=== PATIENT | female | born 1990 | race Caucasian/White ===

== ENCOUNTER 2016-12-10 19:20 | Emergency (ER) | payer MEDICAID ==
[2016-12-10] MEDS ORDERED: ONDANSETRON 4 MG/2 ML VIAL ONE (19:29)
--- NOTE | 2016-12-10 19:43 | EDPHY ---
H & P HPI/ROS: HPI CHIEF COMPLAINT: Right lower quadrant abdominal pain HISTORY OF PRESENT ILLNESS: This patient very pleasant 26-year-old female significant past medical history of endometriosis, status post full hysterectomy , cholecystectomy, does not take any daily medications presents emergency room with ongoing nausea vomiting since 0330 this morning with associated right lower quadrant sharp stabbing abdominal pain. Patient tells me she has had persistent nausea vomiting no diarrhea no fever. And sharp stabbing right lower quadrant pain does not radiate to her flank. No chest pain shortness of breath. No urinary symptoms no vaginal discharge. Not due to full hysterectomy. States the pain is constant right lower quadrant sharp stabbing. 6/10 per currently. With associated nausea vomiting. Nonbilious non hematemesis Patient denies low pelvic pain, vaginal discharge or vaginal bleeding. Past Medical History: Endometriosis Past Surgical History: Total full hysterectomy, cholecystectomy Social History: Denies daily use of drugs alcohol tobacco products Family History: Noncontributory ROS REVIEW OF SYSTEMS: A comprehensive 10 point review of systems is otherwise negative aside from elements mentioned in the history of present illness. Exam Constitutional appears well nontoxic triage nursing summary reviewed, vital signs reviewed, awake/alert. Eyes normal conjunctivae and sclera, EOMI, PERRLA. HENT normal inspection, atraumatic, moist mucus membranes, no epistaxis, neck supple/ no meningismus, no raccoon eyes. Respiratory clear to auscultation bilaterally, normal breath sounds, no respiratory distress, no wheezing. Cardiovascular rate normal, regular rhythm, no murmur, no edema, distal pulses normal. Gastrointestinal soft, tender palpation right lower quadrant, no rebound, no guarding, normal bowel sounds, no distension, no pulsatile mass. Genitourinary no CVA tenderness. Musculoskeletal no midline vertebral tenderness, full range of motion, no calf swelling, no tenderness of extremities, no meningismus, good pulses, neurovascularly intact. Skin pink, warm, & dry, no rash, skin atraumatic. Neurologic awake, alert and oriented x 3, AAOx3, moves all 4 extremities equally, motor intact, sensory intact, CN II-XII intact, normal cerebellar, normal vision, normal speech. Psychiatric normal mood/affect. Heme/Lymph/Immune no lymphadenopathy. Differential diagnosis includes but is not limited to and in no particular order : Bowel obstruction, appendicitis, gallbladder disease, diverticulitis, colitis , enteritis, perforated viscus, gastritis, GERD, esophagitis, urinary tract infection, pyelonephritis, kidney stones Medical Decision Making: This patient had an IV established obtain blood work, patient will need a CT scan abdomen pelvis with IV contrast to rule out acute appendicitis given right lower quadrant abdominal pain. Check urinalysis check blood work she will be hydrated gently with normal saline 1 L, IV Dilaudid for pain control and IV Zofran for nausea. Re-evaluation: CT scan of the abdomen pelvis with IV contrast. The results of the study are negative for acute inflammatory process The study was read by Dr. Hernandez I viewed the images myself on the PACS system. 214: Re-evaluation at this time: She is resting comfortably she has no ongoing abdominal pain, fever vomiting. Her blood work has been reviewed is unremarkable, CT scan abdomen pelvis with IV contrast shows no acute inflammatory process. Her urinalysis pending at this time. I will allow her to be discharged however she understands if she develops worsening abdominal pain fever vomiting she needs return to the emergency room. I have no indication is acute intra-abdominal process at this time. I do recommend she follows up with her primary care doctor. Source: Patient Constitutional: Initial Vital Signs Temperature (C) 36.8 C 12/10/16 19:38 Heart Rate 74 12/10/16 19:38 Respiratory Rate 16 12/10/16 19:38 Blood Pressure 119/74 12/10/16 19:38 O2 Sat (%) 96 12/10/16 19:38 O2 Delivery Mode Room Air O2 (L/minute) 2 Allergies/Adverse Reactions: citalopram hydrobromide [From Celexa] Allergy (Verified 12/10/16 19:38) venlafaxine HCl [From Effexor] Allergy (Verified 12/10/16 19:38) Home Medications: Medication Instructions Recorded Premarin 12/10/16 Medical Decision Making - Data Points Laboratory Results: Laboratory Results 12/10/16 19:48 12/10/16 19:48 12/10/16 12/10/16 12/10/16 19:48 19:48 19:48 WBC 6.52 10^3/uL 10^3/uL (3.80-9.50) RBC 4.57 10^6/uL 10^6/uL (4.18-5.33) Hgb 13.8 g/dL g/dL (12.6-16.3) Hct 39.4 % % (38.0-47.0) MCV 86.2 fL fL (81.5-99.8) MCH 30.2 pg pg (27.9-34.1) MCHC 35.0 g/dL g/dL (32.4-36.7) RDW 12.6 % % (11.5-15.2) Plt Count 205 10^3/uL 10^3/uL (150-400) MPV 10.4 fL fL (8.7-11.7) Neut % (Auto) 48.4 % % (39.3-74.2) Lymph % (Auto) 43.9 % % (15.0-45.0) [place] % (Auto) 6.3 % % (4.5-13.0) Eos % (Auto) 0.9 % % (0.6-7.6) Baso % (Auto) 0.3 % % (0.3-1.7) Nucleat RBC Rel Count 0.0 % % (0.0-0.2) Absolute Neuts (auto) 3.16 10^3/uL 10^3/uL (1.70-6.50) Absolute Lymphs (auto) 2.86 10^3/uL 10^3/uL (1.00-3.00) Absolute Monos (auto) 0.41 10^3/uL 10^3/uL (0.30-0.80) Absolute Eos (auto) 0.06 10^3/uL 10^3/uL (0.03-0.40) Absolute Basos (auto) 0.02 10^3/uL 10^3/uL (0.02-0.10) Absolute Nucleated RBC 0.00 10^3/uL 10^3/uL (0-0.01) Immature Gran % 0.2 % % (0.0-1.1) Immature Gran # 0.01 10^3/uL 10^3/uL (0.00-0.10) PT 13.2 SEC SEC (12.0-15.0) INR 1.01 (0.83-1.16) APTT 29.5 SEC SEC (23.0-38.0) Sodium 140 mEq/L mEq/L (134-144) Potassium 4.0 mEq/L mEq/L (3.5-5.2) Chloride 106 mEq/L mEq/L (97-110) Carbon Dioxide 24 mEq/l mEq/l (22-31) Anion Gap 10 mEq/L mEq/L (8-16) BUN 18 mg/dL mg/dL (7-23) Creatinine 0.7 mg/dL mg/dL (0.6-1.0) Estimated GFR > 60 Glucose 77 mg/dL mg/dL (70-100) Calcium 9.6 mg/dL mg/dL (8.5-10.4) Total Bilirubin 0.6 mg/dL mg/dL (0.1-1.4) Conjugated Bilirubin 0.5 mg/dL mg/dL (0.0-0.5) Unconjugated Bilirubin 0.1 mg/dL mg/dL (0.0-1.1) AST 24 IU/L IU/L (14-46) ALT 44 IU/L IU/L (9-52) Alkaline Phosphatase 63 IU/L IU/L (38-126) Total Protein 7.6 g/dL g/dL (6.3-8.2) Albumin 4.5 g/dL g/dL (3.5-5.0) Lipase 96.0 IU/L IU/L (23-300) Medications Given: Discontinued Medications Fentanyl (Sublimaze) 100 mcg IVP EDNOW ONE Stop: 12/10/16 20:20 Last Admin: 12/10/16 20:28 Dose: 100 mcg Hydromorphone HCl (Dilaudid) 0.5 mg IVP EDNOW ONE Stop: 12/10/16 19:48 Last Admin: 12/10/16 19:58 Dose: 0.5 mg Sodium Chloride (Ns) 1,000 mls @ 0 mls/hr IV ONCE ONE PRN Reason: Wide Open Stop: 12/10/16 19:48 Last Admin: 12/10/16 19:53 Dose: 1,000 mls Sodium Chloride (Ns) 1,000 mls @ 0 mls/hr IV ONCE ONE PRN Reason: Wide Open Stop: 12/10/16 20:57 Last Admin: 12/10/16 20:57 Dose: 1,000 mls Ketorolac Tromethamine (Toradol) 30 mg IVP EDNOW ONE Stop: 12/10/16 21:05 Last Admin: 12/10/16 21:08 Dose: 30 mg Ondansetron HCl (Zofran) 4 mg IVP EDNOW ONE Stop: 12/10/16 19:48 Last Admin: 12/10/16 19:53 Dose: 4 mg Departure - Departure Disposition: Home, Routine, Self-Care Clinical Impression: Abdominal pain Qualifiers: Abdominal location: right lower quadrant Qualified Code(s): R10.31 - Right lower quadrant pain Condition: Good Instructions: Acute Abdominal Pain (ED) Additional Instructions: 1. Return to the emergency room if you have worsening pain vomiting or fever. 2. Please follow up with your primary care doctor. Referrals: Arpita Root DO [Primary Care Provider] - As per Instructions
[2016-12-10 19:46] VITALS: RESP 16; O2SAT 96
[2016-12-10] MEDS ORDERED: NS 1,000 ML IV ONE ×2 (19:47→20:56)
[2016-12-10] MEDS ORDERED: HYDROmorphONE/DILAUDID 1 MG/ML SYR IVP ONE (19:47)
[2016-12-10] MEDS ORDERED: ONDANSETRON 4 MG/2 ML VIAL IVP ONE (19:47)
[2016-12-10] MEDS ORDERED: fentaNYL 100 MCG/2 ML INJ IVP ONE (20:19)
[2016-12-10 20:26] LABS: % IMMATURE GRANULYOCYTES 0.2 % (0.0-1.1); ABSOLUTE IMMATURE GRANULOCYTES 0.01 10^3/uL (0.00-0.10); ADD DIFF? NO; ADD MORPH? NO; ADD SCAN? NO; ATYPICAL LYMPHOCYTE FLAG 40 (0-99); FRAGMENT RBC FLAG 0 (0-99); HEMATOCRIT 39.4 % (38.0-47.0); HEMOGLOBIN 13.8 g/dL (12.6-16.3); LEFT SHIFT FLG 0 (0-99); LIPEMIA HEMOLYSIS FLAG 90 (0-99); MEAN CELL HEMOGLOBIN 30.2 pg (27.9-34.1); MEAN CELL VOLUME 86.2 fL (81.5-99.8); MEAN PLATELET VOLUME 10.4 fL (8.7-11.7); PLATELET CLUMPS FLAG 0 (0-99); PLATELET COUNT 205 10^3/uL (150-400); RED BLOOD CELL COUNT 4.57 10^6/uL (4.18-5.33); RED CELL DISTRIBUTION WIDTH 12.6 % (11.5-15.2)
[2016-12-10 20:30] LABS: INR 1.01 (0.83-1.16); PROTIME(PATIENT) 13.2 SEC (12.0-15.0)
[2016-12-10 20:31] LABS: APTT 29.5 SEC (23.0-38.0)
[2016-12-10 20:33] LABS: ALANINE AMINOTRANSFERASE 44 IU/L (9-52); ALBUMIN 4.5 g/dL (3.5-5.0); ALKALINE PHOSPHATASE 63 IU/L (38-126); ANION GAP 10 mEq/L (8-16); ASPARTATE AMINOTRANSFERASE 24 IU/L (14-46); BILIRUBIN,TOTAL 0.6 mg/dL (0.1-1.4); BILIRUBIN-CONJUGATED 0.5 mg/dL (0.0-0.5); BILIRUBIN-UNCONJUGATED 0.1 mg/dL (0.0-1.1); CALCIUM 9.6 mg/dL (8.5-10.4); CARBON DIOXIDE 24 mEq/l (22-31); CHLORIDE 106 mEq/L (97-110); CREATININE 0.7 mg/dL (0.6-1.0); GLOMERULAR FILTRATION RATE > 60; GLUCOSE 77 mg/dL (70-100); SODIUM 140 mEq/L (134-144); TOTAL PROTEIN 7.6 g/dL (6.3-8.2)
[2016-12-10] MEDS ORDERED: IOPAMIDOL (ISOVUE-300) 100 ML BTL IV ONE (20:37)
[2016-12-10 20:57] VITALS: TEMP 97.9
[2016-12-10] MEDS ORDERED: KETOROLAC 30 MG/1 ML SDV IVP ONE (21:04)
[2016-12-10 21:59] LABS: COLOR YELLOW; LEUKOCYTE ESTERASE,URINE NEGATIVE (NEGATIVE); NITRITE,URINE NEGATIVE (NEGATIVE)
[2016-12-10 22:07] LABS: BACTERIA TRACE /hpf (NONE SEEN); MUCUS TRACE /lpf (NONE-1+); RBC,URINE 15-25 /hpf (0-3)
[2016-12-10] MEDS ORDERED: CEPHALEXIN 500 MG CAP PO ONE (22:27)
[2016-12-10 22:36] VITALS: BP 121/73; PULSE 66
== END 2016-12-10 22:37 | disposition home or self-care (01) ==
DX: R10.31 Right lower quadrant pain (principal); Z90.49 Acquired absence of other specified parts of digestive tract; Z90.710 Acquired absence of both cervix and uterus
CPT/HCPCS: 96374; J1170; J1885; J2405; J3010; Q9967

== ENCOUNTER 2016-12-15 09:03 | Emergency (ER) | payer MEDICAID ==
[2016-12-15 09:12] VITALS: PULSE 85; O2SAT 98
[2016-12-15] MEDS: HYDROmorphONE/DILAUDID 1 MG/ML SYR IVP ONE (10:26)
[2016-12-15] MEDS: KETOROLAC 30 MG/1 ML SDV IVP ONE (10:26)
[2016-12-15] MEDS: NS 1,000 ML IV ONE (10:26)
[2016-12-15] MEDS ORDERED: IOPAMIDOL (ISOVUE-300) 100 ML BTL IV ONE (10:36)
[2016-12-15 10:38] LABS: % IMMATURE GRANULYOCYTES 0.2 % (0.0-1.1); ABSOLUTE IMMATURE GRANULOCYTES 0.01 10^3/uL (0.00-0.10); ADD DIFF? NO; ADD MORPH? NO; ADD SCAN? NO; ATYPICAL LYMPHOCYTE FLAG 10 (0-99); FRAGMENT RBC FLAG 0 (0-99); HEMATOCRIT 39.5 % (38.0-47.0); HEMOGLOBIN 13.9 g/dL (12.6-16.3); LEFT SHIFT FLG 0 (0-99); LIPEMIA HEMOLYSIS FLAG 90 (0-99); MEAN CELL HEMOGLOBIN 31.2 pg (27.9-34.1); MEAN CELL HEMOGLOBIN CONCENTR. 35.2 g/dL (32.4-36.7); MEAN CELL VOLUME 88.6 fL (81.5-99.8); MEAN PLATELET VOLUME 10.4 fL (8.7-11.7); PLATELET CLUMPS FLAG 0 (0-99); PLATELET COUNT 196 10^3/uL (150-400); RED BLOOD CELL COUNT 4.46 10^6/uL (4.18-5.33); RED CELL DISTRIBUTION WIDTH 12.7 % (11.5-15.2)
[2016-12-15 10:46] LABS: ALANINE AMINOTRANSFERASE 33 IU/L (9-52); ALBUMIN 4.4 g/dL (3.5-5.0); ALKALINE PHOSPHATASE 58 IU/L (38-126); ANION GAP 11 mEq/L (8-16); ASPARTATE AMINOTRANSFERASE 19 IU/L (14-46); BILIRUBIN,TOTAL 0.6 mg/dL (0.1-1.4); BILIRUBIN-CONJUGATED 0.5 mg/dL (0.0-0.5); BILIRUBIN-UNCONJUGATED 0.1 mg/dL (0.0-1.1); CALCIUM 9.4 mg/dL (8.5-10.4); CARBON DIOXIDE 23 mEq/l (22-31); CHLORIDE 107 mEq/L (97-110); CREATININE 0.6 mg/dL (0.6-1.0); GLOMERULAR FILTRATION RATE > 60; GLUCOSE 85 mg/dL (70-100); POTASSIUM 4.3 mEq/L (3.5-5.2); SODIUM 141 mEq/L (134-144); TOTAL PROTEIN 7.6 g/dL (6.3-8.2)
[2016-12-15] MEDS ORDERED: HYDROCODONE/APAP 5/325 TAB ONE (11:22)
[2016-12-15] MEDS: HYDROCODONE/APAP 5/325 TAB PO ONE (11:23)
--- NOTE | 2016-12-15 11:32 | EDPHY ---
H & P Time Seen by Provider: 12/15/16 09:43 HPI/ROS: CHIEF COMPLAINT: Squeezing abdominal pain HISTORY OF PRESENT ILLNESS: This 26-year-old woman was seen in our emergency department on December [address] scanning which showed no evidence of appendicitis. The patient is a history of endometriosis and has had a hysterectomy and a bilateral oophorectomy in the past. She states the pain has been present for the past 6 days. It is worse with movement. It is squeezing and sensation on the right side and located in the right lower quadrant. Was associated with an episode of nausea and vomiting today does not radiate. REVIEW OF SYSTEMS: Eye: no change in vision ENT: no sore throat Cardiac: no chest pain or syncope Pulmonary: no cough or SOB Abdomen: HPI, no diarrhea Musculoskeletal: no back pain Skin: no rash Neuro: no headache Constitutional: no fever : no urinary symptoms A comprehensive 10 point review of systems is otherwise negative aside from elements mentioned in the history of present illness. PAST MEDICAL HISTORY: Hysterectomy and oophorectomy, endometriosis. Social history: No alcohol, moved to [place] from [place] 1 month ago. General Appearance: Alert and conversant, cooperative. Eyes: No scleral icterus. ENT, Mouth: Normal mucous membranes. Respiratory: Normal respiratory effort, breath sounds equal, lungs are clear to auscultation. Cardiovascular: Regular rate and rhythm. Gastrointestinal: Right lower quadrant tenderness but without guarding or rebound. Neurological: Alert and oriented x3. Normally conversant. Face symmetric, normal movement and sensation in all extremities. Skin: Warm and dry, no rashes. Musculoskeletal: No peripheral edema and no joint swelling. Psychiatric: Not agitated. Emergency Department course/MDM: Emergency department record by Dr. Jones dated 12/15/2016 personally reviewed. Toradol 30 mg IV, Dilaudid 0.5 mg IV. Plan for repeat CT scanning with worsening pain. Discussed and consented. Normal appendix per Carmen at 1131am, splenic heterogeneity, otherwise negative. No change since 12/10. 1152: Results discussed with patient, case management has set up OBGYN follow- up. I think it is most likely to be endometriosis. Hobbs x1 orally. No urinary symptoms and urine culture from December 10 negative to date. Smoking Status: Never smoked Constitutional: Initial Vital Signs Temperature (C) 36.7 C 12/15/16 09:05 Heart Rate 85 12/15/16 09:05 Respiratory Rate 18 12/15/16 09:05 Blood Pressure 120/87 H 12/15/16 09:05 O2 Sat (%) 98 12/15/16 09:05 O2 Delivery Mode Room Air Allergies/Adverse Reactions: citalopram hydrobromide [From Celexa] Allergy (Severe, Verified 12/15/16 09:12) throat closes up venlafaxine HCl [From Effexor] Allergy (Severe, Verified 12/15/16 09:12) throat closes up Home Medications: Medication Instructions Recorded Premarin 12/10/16 Hydrocodone/APAP 5/325 [Hobbs 1 tab PO Q4-6PRN PRN #11 tab 12/15/16 5/325] Medical Decision Making - Diagnostics Imaging: CT scan reported to me by Carmen as normal appendix, heterogeneous spleen, otherwise normal. Essentially unchanged from December 10. Differential Diagnosis: Differential considered including but not limited to appendicitis, endometriosis , appendiceal abscess, bowel obstruction. - Data Points Laboratory Results: Laboratory Results 12/15/16 10:29 12/15/16 10:29 12/15/16 12/15/16 12/15/16 10:29 10:29 10:19 WBC 5.81 10^3/uL 10^3/uL (3.80-9.50) RBC 4.46 10^6/uL 10^6/uL (4.18-5.33) Hgb 13.9 g/dL g/dL (12.6-16.3) POC Hgb 13.6 gm/dL gm/dL (12.3-15.9) Hct 39.5 % % (38.0-47.0) POC Hct 40 % % (35.5-47.5) MCV 88.6 fL fL (81.5-99.8) MCH 31.2 pg pg (27.9-34.1) MCHC 35.2 g/dL g/dL (32.4-36.7) RDW 12.7 % % (11.5-15.2) Plt Count 196 10^3/uL 10^3/uL (150-400) MPV 10.4 fL fL (8.7-11.7) Neut % (Auto) 54.7 % % (39.3-74.2) Lymph % (Auto) 37.9 % % (15.0-45.0) [place] % (Auto) 6.0 % % (4.5-13.0) Eos % (Auto) 0.9 % % (0.6-7.6) Baso % (Auto) 0.3 % % (0.3-1.7) Nucleat RBC Rel Count 0.0 % % (0.0-0.2) Absolute Neuts (auto) 3.18 10^3/uL 10^3/uL (1.70-6.50) Absolute Lymphs (auto) 2.20 10^3/uL 10^3/uL (1.00-3.00) Absolute Monos (auto) 0.35 10^3/uL 10^3/uL (0.30-0.80) Absolute Eos (auto) 0.05 10^3/uL 10^3/uL (0.03-0.40) Absolute Basos (auto) 0.02 10^3/uL 10^3/uL (0.02-0.10) Absolute Nucleated RBC 0.00 10^3/uL 10^3/uL (0-0.01) Immature Gran % 0.2 % % (0.0-1.1) Immature Gran # 0.01 10^3/uL 10^3/uL (0.00-0.10) POC Sodium 142 mEq/L mEq/L (134-144) Sodium 141 mEq/L mEq/L (134-144) POC Potassium 4.1 mEq/L mEq/L (3.3-5.0) Potassium 4.3 mEq/L mEq/L (3.5-5.2) POC Chloride 107 mEq/L mEq/L (96-108) Chloride 107 mEq/L mEq/L (97-110) Carbon Dioxide 23 mEq/l mEq/l (22-31) Anion Gap 11 mEq/L mEq/L (8-16) POC BUN 17 mg/dL mg/dL (7-23) BUN 17 mg/dL mg/dL (7-23) Creatinine 0.6 mg/dL mg/dL (0.6-1.0) POC Creatinine 0.6 mg/dL mg/dL (0.6-1.2) Estimated GFR > 60 Glucose 85 mg/dL mg/dL (70-100) POC Glucose 87 mg/dL mg/dL (70-100) Calcium 9.4 mg/dL mg/dL (8.5-10.4) Total Bilirubin 0.6 mg/dL mg/dL (0.1-1.4) Conjugated Bilirubin 0.5 mg/dL mg/dL (0.0-0.5) Unconjugated Bilirubin 0.1 mg/dL mg/dL (0.0-1.1) AST 19 IU/L IU/L (14-46) ALT 33 IU/L IU/L (9-52) Alkaline Phosphatase 58 IU/L IU/L (38-126) Total Protein 7.6 g/dL g/dL (6.3-8.2) Albumin 4.4 g/dL g/dL (3.5-5.0) Lipase 119.0 IU/L IU/L (23-300) Medications Given: Discontinued Medications Hydrocodone Bitart/Acetaminophen (Hobbs 5/325) 1 tab PO EDNOW ONE Stop: 12/15/16 11:24 Last Admin: 12/15/16 11:23 Dose: 1 tab Hydromorphone HCl (Dilaudid) 0.5 mg IVP EDNOW ONE Stop: 12/15/16 10:11 Last Admin: 12/15/16 10:26 Dose: 0.5 mg Sodium Chloride (Ns) 1,000 mls @ 0 mls/hr IV ONCE ONE PRN Reason: Wide Open Stop: 12/15/16 10:11 Last Admin: 12/15/16 10:26 Dose: 1,000 mls Ketorolac Tromethamine (Toradol) 30 mg IVP EDNOW ONE Stop: 12/15/16 10:11 Last Admin: 12/15/16 10:26 Dose: 30 mg Point of Care Test Results: 12/15/16 10:19 POC Sodium 142 POC Potassium 4.1 POC Chloride 107 POC BUN 17 POC Creatinine 0.6 POC Glucose 87 Departure - Departure Disposition: Home, Routine, Self-Care Clinical Impression: Pelvic pain Abdominal pain Qualifiers: Abdominal location: right lower quadrant Qualified Code(s): R10.31 - Right lower quadrant pain Condition: Good Instructions: Pelvic Pain in Women (ED) Additional Instructions: Please call the [facility] listed above: Mikayla Luna-Al at [phone], who is located at [facility]. business editor, Amber, ([phone]) called their office and confirmed that they will be able to schedule you for a follow-up appointment, even as soon as this afternoon. Referrals: Mikayla Amato CNM [Certified Nurse Supervisor Ins[facility] Room] - As per Instructions Arpita Root DO [Primary Care Provider] - As per Instructions Prescriptions: Hydrocodone/APAP 5/325 [Hobbs 5/325] 1 tab PO Q4-6PRN PRN #11 tab PRN Reason: For Pain
[2016-12-15 12:09] VITALS: BP 113/76; RESP 16; TEMP 97.7
== END 2016-12-15 12:08 | disposition home or self-care (01) ==
DX: R10.31 Right lower quadrant pain (principal); R10.2 Pelvic and perineal pain; Z90.710 Acquired absence of both cervix and uterus
CPT/HCPCS: 82947-QW; 96374; J1170; J1885; Q9967

== ENCOUNTER 2017-01-13 07:52 | Emergency (ER) | payer MEDICAID ==
[2017-01-13 07:58] VITALS: O2SAT 95
[2017-01-13] MEDS ORDERED: METOCLOPRAMIDE 10 MG/2 ML VIAL IVP ONE (08:13)
[2017-01-13] MEDS ORDERED: KETOROLAC 30 MG/1 ML SDV IVP ONE (08:13)
[2017-01-13] MEDS ORDERED: ONDANSETRON 4 MG/2 ML VIAL IVP ONE (08:13)
[2017-01-13] MEDS ORDERED: NS 1,000 ML IV ONE ×2 (08:13)
--- NOTE | 2017-01-13 08:13 | EDPHY ---
H & P Time Seen by Provider: 01/13/17 08:03 HPI/ROS: CHIEF COMPLAINT: Abdominal pain and vomiting HISTORY OF PRESENT ILLNESS: This 26-year-old woman was seen on December 10 and December 15 of this year with negative CT scan for appendicitis and similar presentation. She followed up with her primary care physician and last saw her on of last week. Her pain was better for a couple of weeks and then reoccurred last week on Thursday. Over the weekend and last 48 hours it is worse associated with vomiting and diarrhea. Located in the right lower quadrant with some radiation to the left. Not better or worse with movement or eating or drinking. REVIEW OF SYSTEMS: Eye: no change in vision ENT: no sore throat Cardiac: no chest pain or syncope Pulmonary: no cough or SOB Abdomen: HPI Musculoskeletal: no back pain Skin: no rash Neuro: no headache Constitutional: no fever : no urinary symptoms A comprehensive 10 point review of systems is otherwise negative aside from elements mentioned in the history of present illness. PAST MEDICAL HISTORY: Bilateral oophorectomy and hysterectomy, depression and anxiety Social history: Nonsmoker, no alcohol General Appearance: Alert and conversant, cooperative. Eyes: No scleral icterus. ENT, Mouth: Normal mucous membranes. Respiratory: Normal respiratory effort, breath sounds equal, lungs are clear to auscultation. Cardiovascular: Regular rate and rhythm. Gastrointestinal: Abdomen is soft and non tender. No rebound or guarding. Neurological: Alert and oriented x3. Normally conversant. Face symmetric, normal movement and sensation in all extremities. Skin: Warm and dry, no rashes. Musculoskeletal: No peripheral edema and no joint swelling. Psychiatric: Anxious, tearful. Emergency Department course/MDM: Ovarian torsion an ectopic excluded by the fact that the patient has had previous surgery. Think appendicitis is be unlikely as these are similar symptoms to the end of last month and she has had [address] scan at that time. Plan for IV pain medication, anti emetics, rehydration. Will talk to her doctor Brigitte Root. 850: Labs reviewed, normal electrolytes and white blood cell count. 905: Still having pain, Dilaudid 1 mg IV. 919: Discussed with Dr. Root will see in f/u this week, no Rx's from me. 940: Abdomen soft, no peritoneal signs, feels better, no n/v. Smoking Status: Never smoked Constitutional: Initial Vital Signs Temperature (C) 36.6 C 01/13/17 07:56 Heart Rate 88 01/13/17 07:56 Respiratory Rate 16 01/13/17 07:56 Blood Pressure 134/81 H 01/13/17 07:56 O2 Sat (%) 95 01/13/17 07:56 O2 Delivery Mode Room Air Allergies/Adverse Reactions: citalopram hydrobromide [From Celexa] Allergy (Severe, Verified 01/13/17 07:55) throat closes up venlafaxine HCl [From Effexor] Allergy (Severe, Verified 01/13/17 07:55) throat closes up Home Medications: Medication Instructions Recorded Premarin 12/10/16 Reglan 01/13/17 Zofran 01/13/17 Medical Decision Making Differential Diagnosis: Differential considered including but not limited to bowel obstruction, endometriosis, acute on chronic abdominal pain, appendicitis. - Data Points Laboratory Results: Laboratory Results 01/13/17 08:25 01/13/17 08:25 01/13/17 01/13/17 01/13/17 09:00 08:25 08:25 WBC 4.83 10^3/uL 10^3/uL (3.80-9.50) RBC 4.87 10^6/uL 10^6/uL (4.18-5.33) Hgb 14.8 g/dL g/dL (12.6-16.3) Hct 42.5 % % (38.0-47.0) MCV 87.3 fL fL (81.5-99.8) MCH 30.4 pg pg (27.9-34.1) MCHC 34.8 g/dL g/dL (32.4-36.7) RDW 12.8 % % (11.5-15.2) Plt Count 191 10^3/uL 10^3/uL (150-400) MPV 10.0 fL fL (8.7-11.7) Neut % (Auto) 51.8 % % (39.3-74.2) Lymph % (Auto) 40.4 % % (15.0-45.0) [place] % (Auto) 6.2 % % (4.5-13.0) Eos % (Auto) 0.8 % % (0.6-7.6) Baso % (Auto) 0.6 % % (0.3-1.7) Nucleat RBC Rel Count 0.0 % % (0.0-0.2) Absolute Neuts (auto) 2.50 10^3/uL 10^3/uL (1.70-6.50) Absolute Lymphs (auto) 1.95 10^3/uL 10^3/uL (1.00-3.00) Absolute Monos (auto) 0.30 10^3/uL 10^3/uL (0.30-0.80) Absolute Eos (auto) 0.04 10^3/uL 10^3/uL (0.03-0.40) Absolute Basos (auto) 0.03 10^3/uL 10^3/uL (0.02-0.10) Absolute Nucleated RBC 0.00 10^3/uL 10^3/uL (0-0.01) Immature Gran % 0.2 % % (0.0-1.1) Immature Gran # 0.01 10^3/uL 10^3/uL (0.00-0.10) Sodium 144 mEq/L mEq/L (134-144) Potassium 3.9 mEq/L mEq/L (3.5-5.2) Chloride 106 mEq/L mEq/L (97-110) Carbon Dioxide 23 mEq/l mEq/l (22-31) Anion Gap 15 mEq/L mEq/L (8-16) BUN 16 mg/dL mg/dL (7-23) Creatinine 0.8 mg/dL mg/dL (0.6-1.0) Estimated GFR > 60 Glucose 83 mg/dL mg/dL (70-100) Calcium 10.0 mg/dL mg/dL (8.5-10.4) Urine RBC 1-3 /hpf /hpf (0-3) Urine WBC 1-3 /hpf /hpf (0-3) Ur Epithelial Cells TRACE /lpf /lpf (NONE-1+) Urine Mucus TRACE /lpf /lpf (NONE-1+) Medications Given: Discontinued Medications Hydromorphone HCl (Dilaudid) 1 mg IVP EDNOW ONE Stop: 01/13/17 09:05 Last Admin: 01/13/17 09:05 Dose: 1 mg Sodium Chloride (Ns) 1,000 mls @ 0 mls/hr IV ONCE ONE PRN Reason: Wide Open Stop: 01/13/17 08:14 Last Admin: 01/13/17 08:30 Dose: 1,000 mls Sodium Chloride (Ns) 1,000 mls @ 0 mls/hr IV ONCE ONE PRN Reason: Wide Open Stop: 01/13/17 08:14 Last Admin: 01/13/17 09:02 Dose: 1,000 mls Ketorolac Tromethamine (Toradol) 15 mg IVP EDNOW ONE Stop: 01/13/17 08:14 Last Admin: 01/13/17 08:30 Dose: 15 mg Metoclopramide HCl (Reglan Injection) 10 mg IVP EDNOW ONE Stop: 01/13/17 08:14 Last Admin: 01/13/17 08:30 Dose: Not Given Ondansetron HCl (Zofran) 4 mg IVP EDNOW ONE Stop: 01/13/17 08:14 Last Admin: 01/13/17 08:31 Dose: 4 mg Departure - Departure Disposition: Home, Routine, Self-Care Clinical Impression: Abdominal pain Qualifiers: Abdominal location: right lower quadrant Qualified Code(s): R10.31 - Right lower quadrant pain Condition: Good Instructions: Abdominal Pain (ED) Referrals: Arpita Root DO [Primary Care Provider] - 1-2 days without fail
[2017-01-13 08:32] LABS: % IMMATURE GRANULYOCYTES 0.2 % (0.0-1.1); ABSOLUTE IMMATURE GRANULOCYTES 0.01 10^3/uL (0.00-0.10); ADD DIFF? NO; ADD MORPH? NO; ADD SCAN? NO; ATYPICAL LYMPHOCYTE FLAG 20 (0-99); FRAGMENT RBC FLAG 0 (0-99); HEMATOCRIT 42.5 % (38.0-47.0); HEMOGLOBIN 14.8 g/dL (12.6-16.3); LEFT SHIFT FLG 0 (0-99); LIPEMIA HEMOLYSIS FLAG 90 (0-99); MEAN CELL HEMOGLOBIN 30.4 pg (27.9-34.1); MEAN CELL HEMOGLOBIN CONCENTR. 34.8 g/dL (32.4-36.7); MEAN CELL VOLUME 87.3 fL (81.5-99.8); PLATELET CLUMPS FLAG 0 (0-99); PLATELET COUNT 191 10^3/uL (150-400); RED BLOOD CELL COUNT 4.87 10^6/uL (4.18-5.33); RED CELL DISTRIBUTION WIDTH 12.8 % (11.5-15.2)
[2017-01-13 08:49] LABS: ANION GAP 15 mEq/L (8-16); CARBON DIOXIDE 23 mEq/l (22-31); CHLORIDE 106 mEq/L (97-110); CREATININE 0.8 mg/dL (0.6-1.0); GLOMERULAR FILTRATION RATE > 60; GLUCOSE 83 mg/dL (70-100); POTASSIUM 3.9 mEq/L (3.5-5.2); SODIUM 144 mEq/L (134-144)
[2017-01-13] MEDS ORDERED: HYDROmorphONE/DILAUDID 1 MG/ML SYR IVP ONE (09:04)
[2017-01-13 09:13] LABS: MUCUS TRACE /lpf (NONE-1+)
[2017-01-13 09:49] VITALS: BP 109/76; PULSE 89; RESP 18; TEMP 97.5
== END 2017-01-13 09:49 | disposition home or self-care (01) ==
DX: R10.31 Right lower quadrant pain (principal); Z90.710 Acquired absence of both cervix and uterus
CPT/HCPCS: 96374; J1170; J1885; J2405